=== PATIENT | female | born 1960 | race Caucasian/White ===

== ENCOUNTER 2019-12-14 05:32 | Emergency (ER) | payer OTHER ==
[~2019-12-14] VITALS: Ht 160 cm; Wt 40.8 kg
[2019-12-14 06:56] LABS: Source, Urine Clean Catch
[2019-12-14 06:58] LABS: BASOPHILS ABSOLUTE AUTO 0.04 K/mm3 (0.00-0.23); BASOPHILS PERCENT AUTO 1 % (0-2); EOSINOPHILS ABSOLUTE AUTO 0.07 K/mm3 (0.00-0.68); EOSINOPHILS PERCENT AUTO 2 % (0-6); Hematocrit 38.6 % (33.0-51.0); Hemoglobin 12.4 g/dL (11.5-16.0); IMMATURE GRAN ABSOLUTE AUTO 0.01 K/mm3 (0.00-0.10); IMMATURE GRAN PERCENT AUTO 0 % (0-1); LYMPHOCYTES ABSOLUTE AUTO 1.49 K/mm3 (0.84-5.20); LYMPHOCYTES PERCENT AUTO 36 % (21-46); MONOCYTES ABSOLUTE AUTO 0.48 K/mm3 (0.16-1.47); MONOCYTES PERCENT AUTO 12 % (4-13); Mean Corpuscular HGB Conc 32.1 g/dL (31.5-36.5); Mean Corpuscular Volume 103 fL (80-100); Mean Platelet Volume 9.3 fL (9.1-12.4); NEUTROPHILS PERCENT AUTO 49 % (41-73); Platelet Count 192 K/mm3 (150-400); RDW Coefficient Variation 13.6 % (11.7-14.2); RDW Standard Deviation 51.7 fL (35.1-46.3); Red Blood Cell Count 3.76 M/mm3 (3.80-5.20); White Blood Cell Count 4.09 K/mm3 (4.00-11.30)
[2019-12-14 07:07] LABS: Appearance, Urine Hazy (Clear); Bilirubin, Urine Neg (Neg); Blood, Urine 3+ (Neg); Color, Urine Yellow (P-Yellow); Glucose Qualitative, Urine Neg (Neg); Ketones, Urine Neg (Neg); Leukocyte Esterase, Urine 2+ (Neg); Nitrite, Urine Neg (Neg); Protein, Urine 2+ (Neg); Specific Gravity, Urine 1.015 (1.003-1.022); Urobilinogen, Urine 1+ (Normal)
[2019-12-14 07:18] LABS: Amorphous Mod (0-Heavy); Bacteria Many /hpf; Mucus Light (0-Heavy); Squamous Epithelial Cells Mod /hpf (Few)
[2019-12-14 07:19] LABS: Alanine Aminotransfer (ALT/SGP 58 U/L (12-78); Albumin, Blood 3.5 g/dL (3.4-5.0); Alk Phos 78 U/L (50-136); Anion Gap 6 mmol/L (6-16); Aspartate Aminotrans (AST/SGOT 84 U/L (12-37); Bilirubin, Total 0.2 mg/dL (0.1-1.0); Blood Urea Nitrogen 10 mg/dL (8-24); Bun/Creatinine Ratio 14.6 (12.0-20.0); C-REACTIVE PROTEIN, EXT RANGE 0.362 mg/dL (0.000-0.300); CO2, Blood 25 mmol/L (21-32); Calcium, Blood 8.5 mg/dL (8.5-10.1); Chloride, Blood 111 mmol/L (98-108); Creatinine, Blood 0.69 mg/dL (0.40-1.00); Globulin, Blood 3.4 g/dL (2.2-4.0); Glomerular Filtration Rate >60 (60-); Glucose, Blood 84 mg/dL (70-99); Potassium, Blood 3.7 mmol/L (3.5-5.5); Sodium, Blood 142 mmol/L (136-145); Total Protein, Blood 6.9 g/dL (6.4-8.2)
[2019-12-14] MEDS ORDERED: CEPH500 PO (09:01)
== END 2019-12-14 09:21 | disposition home or self-care (01) ==
LOC: ER 05:32
PROVIDERS: Emergency Medicine
DX: S31.41XA Laceration without foreign body of vagina and vulva, initial encounter (principal); L03.315 Cellulitis of perineum; Z85.048 Personal history of other malignant neoplasm of rectum, rectosigmoid junction, and anus; Z88.0 Allergy status to penicillin; Z88.5 Allergy status to narcotic agent; X58.XXXA Exposure to other specified factors, initial encounter
CPT/HCPCS: 36415; 72193; 80053; 81001; 85025; 86140; 87086; 87147; 96374; 99283-25; A9270-GY; J1170; Q9967

== ENCOUNTER 2020-08-09 12:35 | Day surgery (SDC) | payer OTHER ==
[~2020-08-09] VITALS: Ht 160 cm; Wt 40.5 kg
[~2020-08-09 12:35] MED LIST: CEPH500 PO
== END 2020-08-09 14:33 | disposition home or self-care (01) ==
LOC: ORSCSDS 12:35
PROVIDERS: Surgery
PROC: 0DJD8ZZ Inspection of Lower Intestinal Tract, Via Natural or Artificial Opening Endoscopic (ICD-10-PCS; principal; 2020-08-09 13:45)
DX: R93.3 Abnormal findings on diagnostic imaging of other parts of digestive tract (principal); Z85.048 Personal history of other malignant neoplasm of rectum, rectosigmoid junction, and anus; F17.210 Nicotine dependence, cigarettes, uncomplicated; F41.9 Anxiety disorder, unspecified
CPT/HCPCS: J2704; J7120

== ENCOUNTER 2020-09-11 17:04 | Emergency (ER) | payer OTHER ==
[~2020-09-11] VITALS: Ht 160 cm; Wt 43.1 kg
== END 2020-09-11 18:33 | disposition home or self-care (01) ==
LOC: ER 17:04
DX: S52.512A Displaced fracture of left radial styloid process, initial encounter for closed fracture (principal); F17.210 Nicotine dependence, cigarettes, uncomplicated; Z88.0 Allergy status to penicillin; Z88.5 Allergy status to narcotic agent; Z88.2 Allergy status to sulfonamides; Z88.7 Allergy status to serum and vaccine; W01.0XXA Fall on same level from slipping, tripping and stumbling without subsequent striking against object, initial encounter
CPT/HCPCS: 29125; 73110; 99283-25; A9270

== ENCOUNTER 2022-12-12 11:39 | Emergency (ER) | payer OTHER ==
[~2022-12-12] VITALS: Ht 160 cm; Wt 40.8 kg
[2022-12-12] MEDS ORDERED: Ventolin/Prove6.7 GM INH (11:48)
[2022-12-12] MEDS ORDERED: EUTHYROX25 MC1 PO (11:48)
[2022-12-12] MEDS ORDERED: NAPROXEN500 MG PO (11:48)
[2022-12-12 14:30] VITALS: BP 120/78
[2022-12-12] MEDS ORDERED: Norco 7.5-3251 EACH PO (15:26)
== END 2022-12-12 15:44 | disposition home or self-care (01) ==
LOC: ER 11:39
DX: S82.144A Nondisplaced bicondylar fracture of right tibia, initial encounter for closed fracture (principal); W01.10XA Fall on same level from slipping, tripping and stumbling with subsequent striking against unspecified object, initial encounter; Z88.0 Allergy status to penicillin; Z88.5 Allergy status to narcotic agent; Z88.2 Allergy status to sulfonamides; Z88.7 Allergy status to serum and vaccine; Z79.899 Other long term (current) drug therapy; F17.210 Nicotine dependence, cigarettes, uncomplicated
CPT/HCPCS: 29505; 73562-RT; 73610; 73700; 99284-25; A9270

== ENCOUNTER 2023-11-18 20:37 | Emergency (ER) | payer OTHER ==
[~2023-11-18] VITALS: Ht 157.5 cm; Wt 38.6 kg
[~2023-11-18 20:37] MED LIST changes: +EUTHYROX25 MC1 PO; +NAPROXEN500 MG PO; +Norco 7.5-3251 EACH PO; +Ventolin/Prove6.7 GM INH
[2023-11-18 21:11] LABS: BASOPHILS ABSOLUTE AUTO 0.06 K/mm3 (0.00-0.23); BASOPHILS PERCENT AUTO 1 % (0-2); EOSINOPHILS ABSOLUTE AUTO 0.01 K/mm3 (0.00-0.68); EOSINOPHILS PERCENT AUTO 0 % (0-6); Hematocrit 34.9 % (33.0-51.0); Hemoglobin 11.5 g/dL (11.5-16.0); IMMATURE GRAN ABSOLUTE AUTO 0.02 K/mm3 (0.00-0.10); IMMATURE GRAN PERCENT AUTO 0 % (0-1); LYMPHOCYTES ABSOLUTE AUTO 0.63 K/mm3 (0.84-5.20); LYMPHOCYTES PERCENT AUTO 11 % (21-46); MONOCYTES PERCENT AUTO 5 % (4-13); Mean Corpuscular Volume 100 fL (80-100); Mean Platelet Volume 8.9 fL (9.1-12.4); NEUTROPHILS ABSOLUTE AUTO 4.95 K/mm3 (1.96-9.15); NEUTROPHILS PERCENT AUTO 83 % (41-73); Platelet Count 288 K/mm3 (150-400); RDW Coefficient Variation 14.5 % (11.7-14.2); Red Blood Cell Count 3.49 M/mm3 (3.80-5.20); White Blood Cell Count 5.97 K/mm3 (4.00-11.30)
[2023-11-18 21:34] LABS: Albumin, Blood 3.5 g/dL (3.4-5.0); Albumin/Globulin Ratio 0.9 (0.8-1.8); Bilirubin, Total 0.3 mg/dL (0.1-1.0); Bun/Creatinine Ratio 25.5 (12.0-20.0); Calcium, Blood 8.6 mg/dL (8.5-10.1); Creatinine, Blood 0.67 mg/dL (0.40-1.00); Globulin, Blood 3.8 g/dL (2.2-4.0); Potassium, Blood 3.5 mmol/L (3.5-5.5); Total Protein, Blood 7.3 g/dL (6.4-8.2)
[2023-11-18 23:21] VITALS: BP 116/81
[2023-11-18] MEDS ORDERED: Voltaren100 GM TOP (23:23)
== END 2023-11-18 23:28 | disposition home or self-care (01) ==
LOC: ER 20:37
PROVIDERS: Student in an Organized Health Care Education/Training Program
DX: R07.89 Other chest pain (principal); S16.1XXA Strain of muscle, fascia and tendon at neck level, initial encounter; X58.XXXA Exposure to other specified factors, initial encounter; Z88.0 Allergy status to penicillin; Z88.5 Allergy status to narcotic agent; Z88.2 Allergy status to sulfonamides; Z88.7 Allergy status to serum and vaccine; Z79.890 Hormone replacement therapy; Z79.899 Other long term (current) drug therapy; F17.210 Nicotine dependence, cigarettes, uncomplicated
CPT/HCPCS: 71046; 80053; 84484; 85025; 93005; 93010; 99285-25

== ENCOUNTER 2024-03-07 09:32 | Inpatient (IN) | payer OTHER ==
[~2024-03-07] VITALS: Ht 160 cm; Wt 39.9 kg
[~2024-03-07 09:32] MED LIST changes: +Voltaren100 GM TOP
[2024-03-07 10:21] LABS: BASOPHILS ABSOLUTE AUTO 0.04 K/mm3 (0.00-0.23); BASOPHILS PERCENT AUTO 0 % (0-2); EOSINOPHILS PERCENT AUTO 0 % (0-6); Hematocrit 38.1 % (33.0-51.0); Hemoglobin 12.7 g/dL (11.5-16.0); IMMATURE GRAN ABSOLUTE AUTO 0.04 K/mm3 (0.00-0.10); IMMATURE GRAN PERCENT AUTO 0 % (0-1); LYMPHOCYTES ABSOLUTE AUTO 0.51 K/mm3 (0.84-5.20); LYMPHOCYTES PERCENT AUTO 4 % (21-46); MONOCYTES ABSOLUTE AUTO 0.48 K/mm3 (0.16-1.47); MONOCYTES PERCENT AUTO 4 % (4-13); Mean Corpuscular HGB 31.8 pg (26.0-34.0); Mean Corpuscular HGB Conc 33.3 g/dL (31.5-36.5); Mean Corpuscular Volume 96 fL (80-100); NEUTROPHILS ABSOLUTE AUTO 12.73 K/mm3 (1.96-9.15); NEUTROPHILS PERCENT AUTO 92 % (41-73); Platelet Count 364 K/mm3 (150-400); RDW Coefficient Variation 13.7 % (11.7-14.2); Red Blood Cell Count 3.99 M/mm3 (3.80-5.20)
[2024-03-07 10:41] LABS: Albumin, Blood 3.5 g/dL (3.4-5.0); Albumin/Globulin Ratio 0.9 (0.8-1.8); Bilirubin, Total 0.6 mg/dL (0.1-1.0); Bun/Creatinine Ratio 25.6 (12.0-20.0); Calcium, Blood 10.2 mg/dL (8.5-10.1); Creatinine, Blood 0.94 mg/dL (0.40-1.00); Globulin, Blood 3.9 g/dL (2.2-4.0); Total Protein, Blood 7.4 g/dL (6.4-8.2)
[2024-03-07] MEDS ORDERED: NS 1,000 ML IV SCH ×2 (13:00→15:00)
[2024-03-07] MEDS ORDERED: Morphine Sulfate 4 MG/1 ML Injection IV ONE (13:00)
[2024-03-07] MEDS ORDERED: Ondansetron HCl 2 MG / ML 2ML Vial IV ONE ×2 (13:40→13:45)
[2024-03-07] MEDS ORDERED: Morphine Sulfate 4 MG/1 ML Injection IV PRN (14:10)
[2024-03-07] MEDS ORDERED: FLU VACC TS2024-25(6MOS UP)/PF 45 MCG/0.5 ML SYRINGE IM PRN (14:10)
[2024-03-07] MEDS ORDERED: Ondansetron HCl 2 MG / ML 2ML Vial IV PRN (14:10)
[2024-03-07 15:39] VITALS: BP 144/85
--- NOTE | 2024-03-07 16:37 | NUR ---
PT ARRIVED TO UNIT FROM ED REQUESTED TO BE CONFIDENTIAL. NOTIFIED ADMITTING. ORIENTED PT TO USE OF CALL LIGHT AND ROOM. PT REPORTS HAS HAD SOME FALLS RECENTLY. ADVISED PT TO CALL FOR ASSISTANCE AMBULATING FOR SAFETY. PT VERBALIZED UNDERSTANDING. PT'S ABDOMEN DISTENDED, FIRM AND BT HYPOACTIVE. AMBULATED TO BATHROOM AND SHOWERED. NOW BACK TO BED. CALL LIGHT IN REACH. MEDICATD PER ORDERS FOR PAIN AND STARTED IV FLUIDS PER ORDERS.
[2024-03-07 19:14] VITALS: BP 119/73
[2024-03-08] VITALS (20 sets, daily range): BP systolic 111–146; BP diastolic 67–91
[2024-03-08 05:29] LABS: BASOPHILS ABSOLUTE AUTO 0.02 K/mm3 (0.00-0.23); BASOPHILS PERCENT AUTO 0 % (0-2); EOSINOPHILS ABSOLUTE AUTO 0.05 K/mm3 (0.00-0.68); EOSINOPHILS PERCENT AUTO 1 % (0-6); Hematocrit 30.4 % (33.0-51.0); Hemoglobin 10.1 g/dL (11.5-16.0); IMMATURE GRAN ABSOLUTE AUTO 0.01 K/mm3 (0.00-0.10); IMMATURE GRAN PERCENT AUTO 0 % (0-1); LYMPHOCYTES ABSOLUTE AUTO 0.67 K/mm3 (0.84-5.20); LYMPHOCYTES PERCENT AUTO 12 % (21-46); MONOCYTES ABSOLUTE AUTO 0.62 K/mm3 (0.16-1.47); MONOCYTES PERCENT AUTO 11 % (4-13); Mean Corpuscular HGB 32.7 pg (26.0-34.0); Mean Corpuscular HGB Conc 33.2 g/dL (31.5-36.5); Mean Corpuscular Volume 98 fL (80-100); NEUTROPHILS ABSOLUTE AUTO 4.06 K/mm3 (1.96-9.15); NEUTROPHILS PERCENT AUTO 75 % (41-73); Platelet Count 264 K/mm3 (150-400); RDW Coefficient Variation 13.9 % (11.7-14.2); RDW Standard Deviation 49.9 fL (35.1-46.3); Red Blood Cell Count 3.09 M/mm3 (3.80-5.20); White Blood Cell Count 5.43 K/mm3 (4.00-11.30)
[2024-03-08 05:58] LABS: Albumin, Blood 2.8 g/dL (3.4-5.0); Bilirubin, Total 0.4 mg/dL (0.1-1.0); Calcium, Blood 8.4 mg/dL (8.5-10.1); Creatinine, Blood 0.81 mg/dL (0.40-1.00); Globulin, Blood 2.9 g/dL (2.2-4.0); Potassium, Blood 3.7 mmol/L (3.5-5.5); Total Protein, Blood 5.7 g/dL (6.4-8.2)
--- NOTE | 2024-03-08 07:34 | NUR ---
SHIFT SUMMARY NOC. PT ADMIT FOR COLONIC OBSTRUCTION. PT A/O X4. PT MEDICATED FOR PAIN WITH MORPHINE APPROX Q 2 HOURS. PT NPO STATUS IS VOIDING URINE. PT REPORTED SMALL DIME SIZE SOFT BM X2 THIS SHIFT. PT RESTED WITH EYES CLOSED AND CALL LIGHT IN REACH.
[2024-03-08] MEDS ORDERED: Lactated Ringer's 1,000 ML IV SCH ×2 (08:45→16:05)
[2024-03-08] MEDS ORDERED: MetroNIDAZOLE 500MG/NS 100 ml 100 ML IV SCH ×2 (10:50→21:00)
[2024-03-08] MEDS ORDERED: LevoFLOXacin 500MG/D5W 100ML 100 ML IV SCH (10:50)
[2024-03-08] MEDS ORDERED: Nicotine 7 MG PATCH TOP SCH (11:00)
[2024-03-08] MEDS ORDERED: Lactated Ringer's 1,000 ML IV ONE (12:32)
--- NOTE | 2024-03-08 12:51 | NUR ---
PT TO PREOP ON TIEN.
[2024-03-08] MEDS ORDERED: Bupivacaine 0.5% HCl 5 MG/ML 30MLVIAL ONE (12:56)
--- NOTE | 2024-03-08 12:59 | NUR ---
PT IN PACU FOR PRE-OP, DR PRATER CONSULTING WITH PT NOW
[2024-03-08] MEDS ORDERED: Midazolam HCl 1MG / ML 2ML Vial ONE (13:03)
--- NOTE | 2024-03-08 13:07 | NUR ---
Venancio XIE ROUTE SALES MANAGER CONSULTING WITH PT
[2024-03-08] MEDS ORDERED: FentaNYL Citrate 50 MCG/ML 2 ML Injection ONE ×2 (13:09→15:44)
[2024-03-08] MEDS ORDERED: Rocuronium Bromide 10 MG/ML 5ML Injection IV ONE (13:10)
[2024-03-08] MEDS ORDERED: Etomidate 2MG / ML 10ML Vial ONE (13:11)
[2024-03-08] MEDS ORDERED: Ketorolac Tromethamine 30mg Vial ONE (14:51)
[2024-03-08] MEDS ORDERED: Sugammadex Sodium 200 MG/2ML SDV (100 MG/ML) ONE (14:52)
[2024-03-08] MEDS ORDERED: Ondansetron HCl 2 MG / ML 2ML Vial ONE (14:52)
[2024-03-08] MEDS ORDERED: Dexamethasone Sod Phos 10 MG/ML 1ML VIAL ONE (14:52)
[2024-03-08] MEDS ORDERED: Metoclopramide HCl 5MG / ML 2ML Vial ONE (15:49)
[2024-03-08] MEDS ORDERED: Ondansetron HCl 2 MG / ML 2ML Vial IV PRN (16:05)
[2024-03-08] MEDS ORDERED: HYDROmorphone HCl/Pf 1MG SYR ONE (16:13)
[2024-03-08] MEDS ORDERED: fentaNYL citrate 20 MCG/ML 30MLSYR IV PRN (16:15)
[2024-03-08] MEDS ORDERED: Nicotine Polacrilex 2 MG Gum PO PRN (16:40)
[2024-03-08] MEDS ORDERED: Albuterol 2.5 MG/3 ML VIAL INH PRN (16:40)
--- NOTE | 2024-03-08 17:36 | NUR ---
POST OP NOTE/SHIFT SUMMARY PT INTO ROOM FROM PACU, AWAKE AND RESPONSIVE, FOLLOWING COMMANDS. PT TRANSFERED TO BED FROM [facility] VIA SLIDE SHEET, REMOVED EXTRA LINENS UNDER PT, PT ABLE TO ROLL SIDE TO SIDE. OSTOMY IN PLACE TO LLQ, SOFT BROWN OUTPUT. MIDLINE FARHAT DRESSING IN PLACE, C/D/I. PUBLIC SPEAKING INSTRUCTOR PUMP SET PER EMAR ORDER, BUTTON IN PT'S HAND. IV FLUIDS RUNNING PER EMAR. PT REPORTS PAIN 9/10 BUT STATES THAT IS TOLERABLE FOR HER. PAS ON. KPAD ON ABD. CO2 MONITOR IN PLACE. FAMILY AND FRIEND AT BEDSIDE W/ PERMISSION OF PT. PT GIVEN CLEAR LIQUIDS AND ENCOURAGED TO TAKE SLOW SIPS. VSS. CALL LIGHT IN REACH.
[2024-03-09 00:07] VITALS: BP 137/85
--- NOTE | 2024-03-09 04:38 | NUR ---
SHIFT SUMMARY POD 1- SIGMOID COLECTOMY W/OSTOMY. APPLIANCE INTACT, OSTOMY EMPTIED MULTIPLE TIMES THIS SHIFT. SOFT, LOOSE BROWN BM. PASSING FLATUS OUT STOMA. STOMA BEEFY RED. PT DENIES N/V. HYPERACTIVE BT. TOLERATING CLEAR LIQUIDS. MIDLINE FARHAT DRESSING CLEAN, INTACT & COMPRESSED. REPORTS 8-01/06 ABD PAIN, STATES AMMONIA NITRATE OPERATOR IS MANAGING HER PAIN WELL. AOX4. VSS. PT ASSISTED TO BSC, HAS VOIDED. CALL LIGHT IN REACH.
[2024-03-09 05:05] VITALS: BP 135/99
[2024-03-09 05:28] LABS: BASOPHILS ABSOLUTE AUTO 0.02 K/mm3 (0.00-0.23); BASOPHILS PERCENT AUTO 0 % (0-2); EOSINOPHILS PERCENT AUTO 0 % (0-6); Hematocrit 30.2 % (33.0-51.0); Hemoglobin 9.7 g/dL (11.5-16.0); IMMATURE GRAN ABSOLUTE AUTO 0.04 K/mm3 (0.00-0.10); IMMATURE GRAN PERCENT AUTO 0 % (0-1); LYMPHOCYTES ABSOLUTE AUTO 0.68 K/mm3 (0.84-5.20); LYMPHOCYTES PERCENT AUTO 8 % (21-46); MONOCYTES PERCENT AUTO 10 % (4-13); Mean Corpuscular HGB 32.3 pg (26.0-34.0); Mean Corpuscular HGB Conc 32.1 g/dL (31.5-36.5); Mean Corpuscular Volume 101 fL (80-100); Mean Platelet Volume 9.1 fL (9.1-12.4); NEUTROPHILS ABSOLUTE AUTO 7.29 K/mm3 (1.96-9.15); NEUTROPHILS PERCENT AUTO 82 % (41-73); Platelet Count 247 K/mm3 (150-400); RDW Coefficient Variation 13.9 % (11.7-14.2); RDW Standard Deviation 50.8 fL (35.1-46.3); White Blood Cell Count 8.93 K/mm3 (4.00-11.30)
[2024-03-09] MEDS ORDERED: Levothyroxine Sodium 0.025 MG Tab PO SCH (06:00)
[2024-03-09 06:03] LABS: Albumin, Blood 2.5 g/dL (3.4-5.0); Albumin/Globulin Ratio 0.8 (0.8-1.8); Bilirubin, Total 0.6 mg/dL (0.1-1.0); Bun/Creatinine Ratio 15.6 (12.0-20.0); Calcium, Blood 8.3 mg/dL (8.5-10.1); Creatinine, Blood 0.83 mg/dL (0.40-1.00); Potassium, Blood 4.3 mmol/L (3.5-5.5); Total Protein, Blood 5.5 g/dL (6.4-8.2)
[2024-03-09 07:38] VITALS: BP 120/84
[2024-03-09] MEDS ORDERED: Nicotine 7 MG PATCH TOP SCH (09:00)
[2024-03-09] MEDS ORDERED: Enoxaparin 30 MG/0.3 ML SYR SC SCH (09:00)
[2024-03-09] MEDS ORDERED: LevoFLOXacin 500MG/D5W 100ML 100 ML IV ONE (13:00)
[2024-03-09] MEDS ORDERED: Lactated Ringer's 1,000 ML IV SCH (13:55)
[2024-03-09 14:22] VITALS: BP 146/100
[2024-03-09 15:57] VITALS: BP 133/82
--- NOTE | 2024-03-09 17:55 | NUR ---
SHIFT SUMMARY POD 1 S/P SIGMOID COLECTOMY WITH OSTOMY. OSTOMY APPLIANCE CHANGED WITH SPECIALIST DUE TO LEAKING. STOMA BEEFY RED IN COLOR AND PRODUCES LARGE AMOUNTS OF THICK, BROWN STOOL. PT ABLE AND WILLING TO ASSIST AND DISCUSS OSTOMY CARE. IVF AND ABX INFUSING PER ORDERS. TOLERATING CL PO INTAKE, DENIES N/V. BINDER SELECTOR INFUSING, MEDICATED 2X FOR BREAK THROUGH PAIN. PT UPSET ABOUT ESTRANGED CALLING TO CHECK ON HER, PT THEN MOVED ROOMS FOR COMFORT AND SAFETY. DIRECTOR AND CHARGE AWARE. PT CURRENTLY TALKING ON PHONE IN ROOM WITH CALL LIGHT AND BINDER SELECTOR BUTTON IN REACH. WILL CONTINUE TO CARE FOR PATIENT AND GIVE REPORT TO ONCOMING RN.
--- NOTE | 2024-03-09 18:01 | NUR ---
UPDATE PT ABLE TO STAND PIVOT TO BSC TO VOID. DECLINED AMBULATION OR SITTING IN THE CHAIR THROUGHOUT SHIFT, ENCOURAGED BY THIS RN AND NUMERICAL CONTROL MACHINE MACHINIST. WILL CONTINUE TO ENCOURAGE AND REPORT TO ONCOMING RN
[2024-03-09 19:54] VITALS: BP 126/70
[2024-03-10 04:28] VITALS: BP 132/84
--- NOTE | 2024-03-10 05:39 | NUR ---
SHIFT SUMMARY NO ACUTE CHANGES OVERNIGHT. POD2 SIGMOID COLECTOMY WITH NEW OSTOMY. OSTOMY STOMA RED, BEEFY. 60ML LIQUID BROWN OUTPUT OVERNIGHT; GAS OUTPUT WELL. ENDORSES ABD PAIN RANGING FROM 7-9/10. MANAGED UTILIZING NPIS AND PER EMAR, INCLUDING FENTANYL PROGRAM MANAGEMENT ANALYST PUMP. DENIES NAUSEA. TOLERATING PO CLEAR LIQUIDS. UP TO BSC FOR VOIDS. 1P SBA FOR LINES/CORDS. A&OX4. PLEASANT & COOPERATIVE WITH CARES. PT ABLE TO REST DURING SHIFT. PT VOICED UNDERSTANDING OF PLAN OF CARES, DENIES QUESTIONS/CONCERNS AT THIS TIME.
[2024-03-10 07:09] LABS: BASOPHILS ABSOLUTE AUTO 0.03 K/mm3 (0.00-0.23); BASOPHILS PERCENT AUTO 0 % (0-2); EOSINOPHILS ABSOLUTE AUTO 0.02 K/mm3 (0.00-0.68); EOSINOPHILS PERCENT AUTO 0 % (0-6); Hematocrit 30.8 % (33.0-51.0); IMMATURE GRAN ABSOLUTE AUTO 0.02 K/mm3 (0.00-0.10); IMMATURE GRAN PERCENT AUTO 0 % (0-1); LYMPHOCYTES ABSOLUTE AUTO 0.52 K/mm3 (0.84-5.20); LYMPHOCYTES PERCENT AUTO 8 % (21-46); MONOCYTES ABSOLUTE AUTO 0.58 K/mm3 (0.16-1.47); MONOCYTES PERCENT AUTO 8 % (4-13); Mean Corpuscular HGB 32.4 pg (26.0-34.0); Mean Corpuscular HGB Conc 32.5 g/dL (31.5-36.5); Mean Corpuscular Volume 100 fL (80-100); NEUTROPHILS ABSOLUTE AUTO 5.71 K/mm3 (1.96-9.15); NEUTROPHILS PERCENT AUTO 83 % (41-73); Platelet Count 231 K/mm3 (150-400); RDW Coefficient Variation 13.6 % (11.7-14.2); RDW Standard Deviation 50.2 fL (35.1-46.3); Red Blood Cell Count 3.09 M/mm3 (3.80-5.20); White Blood Cell Count 6.88 K/mm3 (4.00-11.30)
[2024-03-10 07:32] LABS: Albumin, Blood 2.4 g/dL (3.4-5.0); Albumin/Globulin Ratio 0.8 (0.8-1.8); Bilirubin, Total 0.5 mg/dL (0.1-1.0); Calcium, Blood 8.2 mg/dL (8.5-10.1); Creatinine, Blood 0.64 mg/dL (0.40-1.00); Globulin, Blood 3.1 g/dL (2.2-4.0); Potassium, Blood 3.6 mmol/L (3.5-5.5); Total Protein, Blood 5.5 g/dL (6.4-8.2)
[2024-03-10 07:40] VITALS: BP 148/90
[2024-03-10] MEDS ORDERED: HYDROmorphone HCl 2 MG Tab PO PRN (07:45)
[2024-03-10] MEDS ORDERED: FentaNYL Citrate 50 MCG/ML 2 ML Injection IV PRN (07:45)
[2024-03-10 14:34] VITALS: BP 119/81
--- NOTE | 2024-03-10 17:57 | NUR ---
SHIFT SUMMARY POD 2 SIGMOID COLECTOMY WITH OSTOMY. PAIN MANAGED WITH PO DILAUDID, MEDICATED TWICE. UP IN CHAIR MOST OF SHIFT. AMBULATED IN HALLWAYS, MIC SHOWER, AND IND IN ROOM. TOLERATING REGULAR DIET. ABD DRESSING IN PLACE WITH SS SHADOWING NOTED. OSTOMY STOMA BEEFY RED IN COLOR, PRODUCING SOFT BROWN STOOL. PT REPORTS IMPROVEMENT WITH IND CARE OF OSTOMY. PT CURRENTLY UP IN CHAIR, DENIES NEEDS. HAS CALL LIGHT IN REACH. ABLE TO MAKE NEEDS KNOWN. WILL CONTINUE TO CARE FOR PATIENT AND GIVE REPORT TO ONCOMING RN.
[2024-03-10 19:46] VITALS: BP 125/81
--- NOTE | 2024-03-10 20:17 | NUR ---
REPORT GIVEN TO MAHAMED TO ASSUME CARE OF PT AT THIS TIME.
--- NOTE | 2024-03-10 20:20 | NUR ---
ASSUMPTION OF CARE RECEIVED REPORT FROM KIMBERLEY PERDOMO. REPORTS PT A&O x4. TOERATING DIET. IND IN ROOM. MEDIPORE TO MIDLINE INCISION C/D/I. OSTOMY RED/BEEFY. PT ATTEMPTING TO MANAGE OSTOMY IND. PAIN MANAGED PER EMAR.
[2024-03-11 04:10] VITALS: BP 130/91
--- NOTE | 2024-03-11 05:54 | NUR ---
SHIFT SUMMARY POD 3 SIGMOID COLECTOMY c NEW OSTOMY. NO ACUTE CHANGES OVERNIGHT. VSS. TOLERATING REGULAR DIET. DENIES N/V. IND IN ROOM. VOIDING. PT REPORTS INCREASED SELF-MANAGEMENT OF OSTOMY, BURPING BAG IND. PT REPORTS MIN OUTPUT OVERNIGHT, c LIQ BROWN STOOL. MIDLINE FARHAT C/D/I. PT REPORTS PAIN TOLERABLE, MEDICATED PER EMAR. CALL LIGHT IN REACH, BED IN LOWEST POSITION, WILL REPORT TO DAY RN.
[2024-03-11 06:57] LABS: BASOPHILS ABSOLUTE AUTO 0.02 K/mm3 (0.00-0.23); BASOPHILS PERCENT AUTO 0 % (0-2); EOSINOPHILS ABSOLUTE AUTO 0.03 K/mm3 (0.00-0.68); EOSINOPHILS PERCENT AUTO 1 % (0-6); Hematocrit 30.9 % (33.0-51.0); Hemoglobin 10.1 g/dL (11.5-16.0); IMMATURE GRAN ABSOLUTE AUTO 0.03 K/mm3 (0.00-0.10); IMMATURE GRAN PERCENT AUTO 1 % (0-1); LYMPHOCYTES ABSOLUTE AUTO 0.66 K/mm3 (0.84-5.20); LYMPHOCYTES PERCENT AUTO 11 % (21-46); MONOCYTES ABSOLUTE AUTO 0.53 K/mm3 (0.16-1.47); MONOCYTES PERCENT AUTO 9 % (4-13); Mean Corpuscular HGB 31.8 pg (26.0-34.0); Mean Corpuscular HGB Conc 32.7 g/dL (31.5-36.5); Mean Corpuscular Volume 97 fL (80-100); Mean Platelet Volume 9.2 fL (9.1-12.4); NEUTROPHILS ABSOLUTE AUTO 4.57 K/mm3 (1.96-9.15); NEUTROPHILS PERCENT AUTO 78 % (41-73); Platelet Count 253 K/mm3 (150-400); RDW Coefficient Variation 13.3 % (11.7-14.2); RDW Standard Deviation 48.1 fL (35.1-46.3); Red Blood Cell Count 3.18 M/mm3 (3.80-5.20); White Blood Cell Count 5.84 K/mm3 (4.00-11.30)
[2024-03-11 07:14] LABS: Albumin, Blood 2.5 g/dL (3.4-5.0); Albumin/Globulin Ratio 0.8 (0.8-1.8); Bilirubin, Total 0.5 mg/dL (0.1-1.0); Bun/Creatinine Ratio 11.3 (12.0-20.0); Calcium, Blood 8.3 mg/dL (8.5-10.1); Creatinine, Blood 0.62 mg/dL (0.40-1.00); Globulin, Blood 3.2 g/dL (2.2-4.0); Potassium, Blood 3.4 mmol/L (3.5-5.5); Total Protein, Blood 5.7 g/dL (6.4-8.2)
[2024-03-11 07:42] VITALS: BP 124/87
[2024-03-11] MEDS ORDERED: Potassium Chloride 10 Meq Tablet SA PO ONE (07:50)
--- NOTE | 2024-03-11 13:55 | NUR ---
DR PRATER IN TO SEE PT.
[2024-03-11 14:26] VITALS: BP 116/84
--- NOTE | 2024-03-11 16:51 | NUR ---
summary no acute changes t/o shift. pt independent in room. tolerating diet. emptying ostomy indepedently. pain managed per emar. call light in reach.
[2024-03-11 19:22] VITALS: BP 105/83
[2024-03-12 03:23] VITALS: BP 114/75
[2024-03-12 04:49] LABS: BASOPHILS ABSOLUTE AUTO 0.03 K/mm3 (0.00-0.23); BASOPHILS PERCENT AUTO 1 % (0-2); EOSINOPHILS ABSOLUTE AUTO 0.09 K/mm3 (0.00-0.68); EOSINOPHILS PERCENT AUTO 2 % (0-6); Hemoglobin 11.2 g/dL (11.5-16.0); IMMATURE GRAN ABSOLUTE AUTO 0.03 K/mm3 (0.00-0.10); IMMATURE GRAN PERCENT AUTO 1 % (0-1); LYMPHOCYTES ABSOLUTE AUTO 1.14 K/mm3 (0.84-5.20); LYMPHOCYTES PERCENT AUTO 19 % (21-46); MONOCYTES ABSOLUTE AUTO 0.59 K/mm3 (0.16-1.47); MONOCYTES PERCENT AUTO 10 % (4-13); Mean Corpuscular HGB 32.5 pg (26.0-34.0); Mean Corpuscular HGB Conc 32.9 g/dL (31.5-36.5); Mean Corpuscular Volume 99 fL (80-100); Mean Platelet Volume 9.3 fL (9.1-12.4); NEUTROPHILS ABSOLUTE AUTO 3.99 K/mm3 (1.96-9.15); NEUTROPHILS PERCENT AUTO 68 % (41-73); Platelet Count 286 K/mm3 (150-400); RDW Coefficient Variation 13.5 % (11.7-14.2); RDW Standard Deviation 48.8 fL (35.1-46.3); Red Blood Cell Count 3.45 M/mm3 (3.80-5.20); White Blood Cell Count 5.87 K/mm3 (4.00-11.30)
[2024-03-12 05:11] LABS: Albumin, Blood 2.8 g/dL (3.4-5.0); Albumin/Globulin Ratio 0.7 (0.8-1.8); Bilirubin, Total 0.2 mg/dL (0.1-1.0); Bun/Creatinine Ratio 18.1 (12.0-20.0); Creatinine, Blood 0.66 mg/dL (0.40-1.00); Globulin, Blood 3.8 g/dL (2.2-4.0); Potassium, Blood 3.8 mmol/L (3.5-5.5); Total Protein, Blood 6.6 g/dL (6.4-8.2)
--- NOTE | 2024-03-12 05:45 | NUR ---
SHIFT SUMMARY POD 4 SIGMOID COLECTOMY W/ OSTOMY PT ABLE TO REST DURING THE NIGHT. PAIN MANAGED PER EMAR. TOLERATING PO INTAKE. VOIDING AND OSTOMY IS HAVING OUTPUT. OSTOMY IS BEEFY AND PINK. IND IN THE ROOM, TAKING CARE OF OWN OSTOMY. PLAN TO GO HOME TODAY. VSS. NO OTHER CONCERNS AT THIS TIME, CALL LIGHT WITHIN REACH
[2024-03-12 06:57] VITALS: BP 111/87
[2024-03-12] MEDS ORDERED: HYDMOR2 PO (12:34)
[2024-03-12] MEDS ORDERED: NICOTINE GUM2 M1 PO (12:39)
[2024-03-12] MEDS ORDERED: NICODERM CQ1 EA24 TOP (12:40)
[2024-03-12 14:25] VITALS: BP 109/66
--- NOTE | 2024-03-12 15:07 | NUR ---
DISCHARGED PT CHANGED OWN OSTOMY TODAY WITH COACHING. REVIEWED DC INSTRUCTIONS WITH PT; VERBALIZED UNDERSTANDING. PROVIDED OSTOMY APPLIANCE CHANGES/SUPPLIES. DC'D IV, CATHETER INTACT. PT LEFT UNIT IN WC W/POSSESSIONS AND DC PAPERWORK IN HAND TO MEET RIDE OUTSIDE.
== END 2024-03-12 15:05 | disposition home health service (06) | DRG 330 ==
LOC: ER 09:32 → SURS 14:07 → ERHOLD 14:07 → SURS 14:07
PROVIDERS: Family Medicine; Physician Assistant; Surgery; ADMIT Hospitalist
PROC: 0DBN0ZZ Excision of Sigmoid Colon, Open Approach (ICD-10-PCS; principal; 2024-03-08 12:30)
DX: K56.609 Unspecified intestinal obstruction, unspecified as to partial versus complete obstruction (principal); N13.1 Hydronephrosis with ureteral stricture, not elsewhere classified; E03.9 Hypothyroidism, unspecified; Z92.21 Personal history of antineoplastic chemotherapy; Z92.3 Personal history of irradiation; Z85.048 Personal history of other malignant neoplasm of rectum, rectosigmoid junction, and anus; Z98.51 Tubal ligation status; Z98.890 Other specified postprocedural states; F17.210 Nicotine dependence, cigarettes, uncomplicated; Z88.5 Allergy status to narcotic agent; Z88.0 Allergy status to penicillin; Z88.2 Allergy status to sulfonamides; Z88.7 Allergy status to serum and vaccine; Z79.899 Other long term (current) drug therapy; Z79.890 Hormone replacement therapy; Z85.038 Personal history of other malignant neoplasm of large intestine; Z93.3 Colostomy status
CPT/HCPCS: 36415; 74177; 80053; 85025; 88307; 94760; 94762; 96361; 96374-59; 96375; 99285-25; A9270; J1100; J1171; J1650; J1885; J1956; J2250; J2270; J2405; J2765; J3010; J7030; J7120; Q9967

== ENCOUNTER 2024-03-27 09:33 | Emergency (ER) | payer OTHER ==
[~2024-03-27] VITALS: Ht 157.5 cm; Wt 40.8 kg
[~2024-03-27 09:33] MED LIST changes: +HYDMOR2 PO; +NICODERM CQ1 EA24 TOP; +NICOTINE GUM2 M1 PO
[2024-03-27] MEDS ORDERED: HYDROmorphone HCl/Pf 1MG SYR IV ONE ×2 (10:25→14:10)
[2024-03-27] MEDS ORDERED: Ondansetron HCl 2 MG / ML 2ML Vial IV ONE (10:30)
[2024-03-27 10:53] LABS: BASOPHILS ABSOLUTE AUTO 0.04 K/mm3 (0.00-0.23); BASOPHILS PERCENT AUTO 1 % (0-2); EOSINOPHILS ABSOLUTE AUTO 0.11 K/mm3 (0.00-0.68); EOSINOPHILS PERCENT AUTO 2 % (0-6); Hematocrit 32.7 % (33.0-51.0); Hemoglobin 10.6 g/dL (11.5-16.0); IMMATURE GRAN ABSOLUTE AUTO 0.01 K/mm3 (0.00-0.10); IMMATURE GRAN PERCENT AUTO 0 % (0-1); LYMPHOCYTES ABSOLUTE AUTO 1.07 K/mm3 (0.84-5.20); LYMPHOCYTES PERCENT AUTO 19 % (21-46); MONOCYTES ABSOLUTE AUTO 0.43 K/mm3 (0.16-1.47); MONOCYTES PERCENT AUTO 8 % (4-13); Mean Corpuscular HGB 31.5 pg (26.0-34.0); Mean Corpuscular HGB Conc 32.4 g/dL (31.5-36.5); Mean Corpuscular Volume 97 fL (80-100); Mean Platelet Volume 8.8 fL (9.1-12.4); NEUTROPHILS ABSOLUTE AUTO 4.02 K/mm3 (1.96-9.15); NEUTROPHILS PERCENT AUTO 71 % (41-73); Platelet Count 276 K/mm3 (150-400); RDW Coefficient Variation 13.7 % (11.7-14.2); RDW Standard Deviation 48.9 fL (35.1-46.3); Red Blood Cell Count 3.36 M/mm3 (3.80-5.20); White Blood Cell Count 5.68 K/mm3 (4.00-11.30)
[2024-03-27 11:04] LABS: Source, Urine Clean Catch
[2024-03-27 11:06] LABS: Appearance, Urine Clear (Clear); Bilirubin, Urine Neg (Neg); Blood, Urine Neg (Neg); Color, Urine Yellow (P-Yellow); Glucose Qualitative, Urine Neg (Neg); Ketones, Urine Neg (Neg); Leukocyte Esterase, Urine Neg (Neg); Nitrite, Urine Neg (Neg); Protein, Urine Neg (Neg); Urobilinogen, Urine NORM (Normal)
[2024-03-27 11:14] LABS: Albumin, Blood 3.4 g/dL (3.4-5.0); Albumin/Globulin Ratio 1.1 (0.8-1.8); Bilirubin, Total 0.3 mg/dL (0.1-1.0); Bun/Creatinine Ratio 20.8 (12.0-20.0); Creatinine, Blood 0.77 mg/dL (0.40-1.00); Globulin, Blood 3.1 g/dL (2.2-4.0); Potassium, Blood 3.6 mmol/L (3.5-5.5); Total Protein, Blood 6.5 g/dL (6.4-8.2)
[2024-03-27] MEDS ORDERED: Methocarbamol 500 MG Tab PO ONE (14:55)
[2024-03-27] MEDS ORDERED: METHOCARBAMOL1000 MG PO (15:55)
[2024-03-27] MEDS ORDERED: HYDMOR2 PO (15:55)
[2024-03-27 16:21] VITALS: BP 126/94
== END 2024-03-27 16:36 | disposition home or self-care (01) ==
LOC: ER 09:33
PROVIDERS: Student in an Organized Health Care Education/Training Program
DX: M25.551 Pain in right hip (principal); M62.830 Muscle spasm of back; Z88.0 Allergy status to penicillin; Z88.5 Allergy status to narcotic agent; Z88.2 Allergy status to sulfonamides; Z79.899 Other long term (current) drug therapy; E03.9 Hypothyroidism, unspecified; F17.210 Nicotine dependence, cigarettes, uncomplicated
CPT/HCPCS: 74177; 80053; 81003; 85025; 96374-59; 96375; 96376; 99284-25; A9270; J1171; J2405; Q9967

== ENCOUNTER 2024-08-27 16:46 | Emergency (ER) | payer MEDICARE, OTHER ==
[~2024-08-27] VITALS: Ht 160 cm; Wt 38.1 kg
[~2024-08-27 16:46] MED LIST changes: +METHOCARBAMOL1000 MG PO
[2024-08-27 16:54] VITALS: BP 103/78
[2024-08-27 17:26] LABS: BASOPHILS ABSOLUTE AUTO 0.05 K/mm3 (0.00-0.23); BASOPHILS PERCENT AUTO 1 % (0-2); EOSINOPHILS ABSOLUTE AUTO 0.07 K/mm3 (0.00-0.68); EOSINOPHILS PERCENT AUTO 1 % (0-6); Hemoglobin 12.9 g/dL (11.5-16.0); IMMATURE GRAN ABSOLUTE AUTO 0.03 K/mm3 (0.00-0.10); IMMATURE GRAN PERCENT AUTO 1 % (0-1); LYMPHOCYTES ABSOLUTE AUTO 1.55 K/mm3 (0.84-5.20); LYMPHOCYTES PERCENT AUTO 26 % (21-46); MONOCYTES ABSOLUTE AUTO 0.49 K/mm3 (0.16-1.47); MONOCYTES PERCENT AUTO 8 % (4-13); Mean Corpuscular HGB 32.4 pg (26.0-34.0); Mean Corpuscular HGB Conc 33.9 g/dL (31.5-36.5); Mean Corpuscular Volume 96 fL (80-100); NEUTROPHILS ABSOLUTE AUTO 3.72 K/mm3 (1.96-9.15); NEUTROPHILS PERCENT AUTO 63 % (41-73); RDW Coefficient Variation 14.3 % (11.7-14.2); RDW Standard Deviation 50.3 fL (35.1-46.3); Red Blood Cell Count 3.98 M/mm3 (3.80-5.20); White Blood Cell Count 5.91 K/mm3 (4.00-11.30)
[2024-08-27 17:56] LABS: Mean Platelet Volume 9.3 fL (9.1-12.4); Platelet Count 251 K/mm3 (150-400)
[2024-08-27 17:57] LABS: Albumin, Blood 3.9 g/dL (3.4-5.0); Albumin/Globulin Ratio 1.1 (0.8-1.8); Bilirubin, Total 0.4 mg/dL (0.1-1.0); Bun/Creatinine Ratio 12.4 (12.0-20.0); Calcium, Blood 9.3 mg/dL (8.5-10.1); Creatinine, Blood 0.64 mg/dL (0.40-1.00); Globulin, Blood 3.5 g/dL (2.2-4.0); Potassium, Blood 3.8 mmol/L (3.5-5.5); Total Protein, Blood 7.4 g/dL (6.4-8.2)
[2024-08-28] MEDS ORDERED: SYNTHROID25 M12 PO (22:04)
[2024-08-28] MEDS ORDERED: DULOXETINE HCL60 M1 PO (22:04)
[2024-08-28] MEDS ORDERED: CYMBALTA30 M2 PO (22:05)
[2024-08-28] MEDS ORDERED: ALBU90OI INH (22:05)
[2024-08-28] MEDS ORDERED: Methocarbamol500 MG PO (22:05)
[2024-08-28] MEDS ORDERED: NICO21TP TOP (22:06)
[2024-08-28] MEDS ORDERED: ONDA4ODT MM (22:29)
== END 2024-08-27 23:14 | disposition left against medical advice (07) ==
LOC: ER 16:46
PROVIDERS: Student in an Organized Health Care Education/Training Program
DX: Z53.21 Procedure and treatment not carried out due to patient leaving prior to being seen by health care provider (principal); R42 Dizziness and giddiness; R10.9 Unspecified abdominal pain
CPT/HCPCS: 80053; 83690; 84484; 85025; 93005; 93010

== ENCOUNTER 2024-08-28 16:40 | Emergency (ER) | payer MEDICARE, OTHER ==
[~2024-08-28] VITALS: Ht 160 cm; Wt 63.5 kg
[2024-08-28 17:22] LABS: BASOPHILS ABSOLUTE AUTO 0.04 K/mm3 (0.00-0.23); BASOPHILS PERCENT AUTO 1 % (0-2); EOSINOPHILS ABSOLUTE AUTO 0.05 K/mm3 (0.00-0.68); EOSINOPHILS PERCENT AUTO 1 % (0-6); Hematocrit 39.5 % (33.0-51.0); Hemoglobin 13.3 g/dL (11.5-16.0); IMMATURE GRAN ABSOLUTE AUTO 0.02 K/mm3 (0.00-0.10); IMMATURE GRAN PERCENT AUTO 0 % (0-1); LYMPHOCYTES ABSOLUTE AUTO 1.27 K/mm3 (0.84-5.20); LYMPHOCYTES PERCENT AUTO 24 % (21-46); MONOCYTES ABSOLUTE AUTO 0.44 K/mm3 (0.16-1.47); MONOCYTES PERCENT AUTO 8 % (4-13); Mean Corpuscular HGB 32.9 pg (26.0-34.0); Mean Corpuscular HGB Conc 33.7 g/dL (31.5-36.5); Mean Corpuscular Volume 98 fL (80-100); NEUTROPHILS ABSOLUTE AUTO 3.41 K/mm3 (1.96-9.15); NEUTROPHILS PERCENT AUTO 65 % (41-73); Platelet Count 252 K/mm3 (150-400); RDW Coefficient Variation 14.6 % (11.7-14.2); RDW Standard Deviation 52.9 fL (35.1-46.3); Red Blood Cell Count 4.04 M/mm3 (3.80-5.20); White Blood Cell Count 5.23 K/mm3 (4.00-11.30)
[2024-08-28 17:58] LABS: Albumin, Blood 3.8 g/dL (3.4-5.0); Albumin/Globulin Ratio 1.1 (0.8-1.8); Bilirubin, Total 0.4 mg/dL (0.1-1.0); Bun/Creatinine Ratio 18.1 (12.0-20.0); Calcium, Blood 9.1 mg/dL (8.5-10.1); Creatinine, Blood 0.66 mg/dL (0.40-1.00); Globulin, Blood 3.6 g/dL (2.2-4.0); Potassium, Blood 3.6 mmol/L (3.5-5.5); Total Protein, Blood 7.4 g/dL (6.4-8.2)
[2024-08-28 19:49] VITALS: BP 111/77
[2024-08-28] MEDS ORDERED: HYDROmorphone HCl/Pf 1MG SYR IV ONE (20:10)
[2024-08-28] MEDS ORDERED: NS 1,000 ML IV SCH (20:10)
[2024-08-28] MEDS ORDERED: Ondansetron HCl 2 MG / ML 2ML Vial IV ONE (20:15)
[2024-08-28] MEDS ORDERED: DULOXETINE HCL60 M1 PO (22:04)
[2024-08-28] MEDS ORDERED: SYNTHROID25 M12 PO (22:04)
[2024-08-28] MEDS ORDERED: Methocarbamol500 MG PO (22:05)
[2024-08-28] MEDS ORDERED: ALBU90OI INH (22:05)
[2024-08-28] MEDS ORDERED: CYMBALTA30 M2 PO (22:05)
[2024-08-28] MEDS ORDERED: NICO21TP TOP (22:06)
[2024-08-28] MEDS ORDERED: ONDA4ODT MM (22:29)
== END 2024-08-28 22:40 | disposition home or self-care (01) ==
LOC: ER 16:40
PROVIDERS: Student in an Organized Health Care Education/Training Program
DX: K52.9 Noninfective gastroenteritis and colitis, unspecified (principal); E03.9 Hypothyroidism, unspecified; F17.210 Nicotine dependence, cigarettes, uncomplicated; Z79.899 Other long term (current) drug therapy; Z88.0 Allergy status to penicillin; Z88.5 Allergy status to narcotic agent; Z88.2 Allergy status to sulfonamides; Z88.8 Allergy status to other drugs, medicaments and biological substances
CPT/HCPCS: 74177; 80053; 83690; 85025; 96374-59; 96375; 99284-25; J1171; J2405; J7030; Q9967

== ENCOUNTER → 2024-11-05 | Outpatient (CLI) | payer MEDICARE, OTHER ==
[~2024-11-05] MED LIST changes: +ALBU90OI INH; +CYMBALTA30 M2 PO; +DIAZEPAM2 M2 PO; +DULOXETINE HCL60 M1 PO; +LEVOTHYROXINE25 MC9 PO; +LEVSOD100 PO; +METR500 PO; +MULTI-VITAMIN1 EAC2 PO; +Methocarbamol500 MG PO; +NEOM500 PO; +NICO21TP TOP; +ONDA4ODT MM
== END | disposition home or self-care (01) ==
LOC: LAB SHORT 15:27 → LAB 15:27
PROVIDERS: Obstetrics & Gynecology
DX: Z01.419 Encounter for gynecological examination (general) (routine) without abnormal findings (principal)
CPT/HCPCS: 87624; G0123

== ENCOUNTER 2024-11-20 10:52 | Inpatient (IN) | payer MEDICARE, OTHER ==
[2024-11-20] VITALS (15 sets, daily range): BP systolic 105–141; BP diastolic 70–90
[~2024-11-20] VITALS: Ht 157.5 cm; Wt 37.2 kg
[~2024-11-20 10:52] MED LIST changes: +CYMBALTA60 M1 PO; +DIAZ2 PO; +ELDERBERRY350 MG PO; -LEVOTHYROXINE25 MC9 PO; +LEVSOD25 PO
[2024-11-20] MEDS ORDERED: CeFAZolin Sodium 2,000 MG in NS 100 ML IV SCH (11:15)
--- NOTE | 2024-11-20 11:33 | NUR ---
Ambulatory in Day Surgery History, Chart, Medications and Allergies reviewed before start of procedure. Pre-Op teaching done. Pt verbalizes understanding.
[2024-11-20] MEDS ORDERED: Bupivacaine 0.5% HCl 5 MG/ML 30MLVIAL ONE (12:12)
[2024-11-20] MEDS ORDERED: Midazolam HCl 1MG / ML 2ML Vial ONE (12:58)
[2024-11-20] MEDS ORDERED: Midazolam HCl 1MG / ML 2ML Vial IV ONE (13:05)
[2024-11-20] MEDS ORDERED: FentaNYL Citrate 50 MCG/ML 2 ML Injection ONE (13:07)
[2024-11-20] MEDS ORDERED: CeFAZolin Sodium 1000 mg Vial IV ONE (13:23)
[2024-11-20] MEDS ORDERED: Albuterol 2.5 MG/3 ML VIAL INH PRN (13:35)
[2024-11-20] MEDS ORDERED: Ondansetron HCl 2 MG / ML 2ML Vial IV PRN ×2 (13:40→14:40)
[2024-11-20] MEDS ORDERED: Midazolam HCl 1MG / ML 2ML Vial IV PRN (13:40)
[2024-11-20] MEDS ORDERED: HYDROmorphone HCl/Pf 1MG SYR IV PRN ×2 (13:40→14:40)
[2024-11-20] MEDS ORDERED: FentaNYL Citrate 50 MCG/ML 2 ML Injection IV PRN ×2 (13:45→13:50)
[2024-11-20] MEDS ORDERED: Sugammadex Sodium 200 MG/2ML SDV (100 MG/ML) ONE (13:53)
[2024-11-20] MEDS ORDERED: Ondansetron HCl 2 MG / ML 2ML Vial ONE ×2 (13:56→14:46)
[2024-11-20] MEDS ORDERED: Dexamethasone Sod Phos 10 MG/ML 1ML VIAL ONE (13:56)
[2024-11-20] MEDS ORDERED: HYDROmorphone HCl/Pf 1MG SYR ONE ×2 (14:08→14:45)
[2024-11-20] MEDS ORDERED: Metoclopramide HCl 5MG / ML 2ML Vial ONE (14:53)
[2024-11-20] MEDS ORDERED: Metoclopramide HCl 5MG / ML 2ML Vial IV ONE (14:55)
--- NOTE | 2024-11-20 16:22 | NUR ---
POST-OP PATIENT TO ROOM 231 MEPILEX COVERING THE OLD OSTOMY SITE WITH PINPOINT DRNG. PATIENT IS AMBULATING WITH SBA TO BATHROOM. IV IS SL. PATIENT TOLERATING PO INTAKE OF CL. VSS, CALL LIGHT IN REACH. FAMILY IN ROOM VISITING.
--- NOTE | 2024-11-20 17:41 | NUR ---
SHIFT SUMMARY PATIENT TOLERATES CL DIET, DENIES NAUSEA. UP AND VOIDING IN BATHROOM. IV IS SL. DENIES NEED FOR PAIN MEDICATION. PATIENT IS AOX4, SBA TO IND IN ROOM. VSS. CALLS APROPRIATELY.
--- NOTE | 2024-11-20 22:19 | NUR ---
ASSUMING CARE OF PT AT THIS TIME; REPORT RECEIVED FROM LEANNE ALCANTARA
[2024-11-21 04:54] VITALS: BP 117/67
[2024-11-21 05:03] LABS: Hematocrit 42.8 % (33.0-51.0); Hemoglobin 13.6 g/dL (11.5-16.0); Mean Corpuscular HGB Conc 31.8 g/dL (31.5-36.5); NRBC ABSOLUTE 0.00 K/mm3 (0.00-0.02); NRBC Auto 0.0 /100 WBC (0.0-0.2); Platelet Count 176 K/mm3 (150-400); RDW Coefficient Variation 14.4 % (11.7-14.2); RDW Standard Deviation 55.3 fL (35.1-46.3)
[2024-11-21 05:14] LABS: Mean Corpuscular Volume 103 fL (80-100)
[2024-11-21 05:23] LABS: Anion Gap 8.0 mmol/L (3-11); Blood Urea Nitrogen 11.0 mg/dL (8-24); CO2, Blood 17.0 mmol/L (21-32); Calcium, Blood 8.3 mg/dL (8.5-10.1); Chloride, Blood 110.0 mmol/L (98-108); Creatinine, Blood 0.53 mg/dL (0.40-1.00); Glucose, Blood 111.0 mg/dL (70-99); Potassium, Blood 4.4 mmol/L (3.5-5.5); Sodium, Blood 131.0 mmol/L (136-145)
--- NOTE | 2024-11-21 05:34 | NUR ---
SHIFT SUMMARY NO ACUTE EVENTS OVERNIGHT. PT AMBULATING IN HALLS, PT PASSING FLATUS. PT TOLERATING CLEAR LIQUID DIET. PT INDEPENDENT IN ROOM. ABDOMINAL DRESSING CDI.
[2024-11-21 07:31] VITALS: BP 125/86
[2024-11-21 14:37] VITALS: BP 131/87
--- NOTE | 2024-11-21 17:40 | NUR ---
Pt eating meal tray. will continue to monitor. Pt did not tolerate tomato soup for lunch. will continue to monitor.
[2024-11-21 19:15] VITALS: BP 103/69
--- NOTE | 2024-11-22 04:43 | NUR ---
NOC SUMMARY- PT PAIN MANAGED WELL. PT HAD SOME GI UPSET THAT RESOLVED ON OWN. PT TOLERATING PO THIS SHIFT. PT HAS BEEN ABLE TO TAKE PO PAIN MED WITH RELIEF. PT AMBULATORY AND VOIDING. PT PASSING GAS. CALL LIGHT IN REACH.
[2024-11-22 05:27] VITALS: BP 113/68
[2024-11-22 07:29] VITALS: BP 105/64
[2024-11-22] MEDS ORDERED: Enoxaparin 30 MG/0.3 ML SYR SC SCH (09:00)
[2024-11-22 15:14] VITALS: BP 111/71
[2024-11-22 19:47] VITALS: BP 114/79
--- NOTE | 2024-11-23 04:11 | NUR ---
NOC SUMMARY- PT PAIN MANAGED WELL. PT TOLERATING PO PAIN MEDS WELL. PT HAS BEEN RESTING QUIETLY IN NO DISTRESS. CALL LIGHT IN REACH.
[2024-11-23 05:03] VITALS: BP 104/65
[2024-11-23 07:05] VITALS: BP 97/61
[2024-11-23 15:49] VITALS: BP 109/70
--- NOTE | 2024-11-23 15:55 | NUR ---
DISCHARGED DR COBB IN TO SEE PT THIS AFTERNOON, GAVE ORDERS TO DC. REVIEWED DC ORDERS W/PT; VERBALIZED UNDERSTANDING. DC'D IV, CATHETER INTACT. PT LEFT UNIT IN WC W/POSSESSIONS AND DC PAPERWORK IN HAND TO MEET RIDE OUTSIDE.
== END 2024-11-23 15:50 | disposition home or self-care (01) | DRG 331 ==
LOC: SURS 10:52 → MEDS 10:52 → SURS 15:06
PROVIDERS: ADMIT Surgery
PROC: 3E03329 Introduction of Other Anti-infective into Peripheral Vein, Percutaneous Approach (ICD-10-PCS; 2024-11-20)
PROC: 0DQB0ZZ Repair Ileum, Open Approach (ICD-10-PCS; principal; 2024-11-20 13:00)
DX: Z43.3 Encounter for attention to colostomy (principal); F41.9 Anxiety disorder, unspecified; M19.90 Unspecified osteoarthritis, unspecified site; E03.9 Hypothyroidism, unspecified; F17.210 Nicotine dependence, cigarettes, uncomplicated; Z85.048 Personal history of other malignant neoplasm of rectum, rectosigmoid junction, and anus; Z98.51 Tubal ligation status; Z79.899 Other long term (current) drug therapy; Z79.891 Long term (current) use of opiate analgesic; Z98.890 Other specified postprocedural states; Z79.890 Hormone replacement therapy; Z88.5 Allergy status to narcotic agent; Z88.2 Allergy status to sulfonamides; Z88.7 Allergy status to serum and vaccine; Z88.0 Allergy status to penicillin; N28.1 Cyst of kidney, acquired; Z93.3 Colostomy status
CPT/HCPCS: 36415; 80048; 85027; 94760; A9270; J0690; J1100; J1171; J1650; J2250; J2405; J2704; J2765; J3010; J7120

== ENCOUNTER 2025-03-27 10:52 | Emergency (ER) | payer MEDICARE, OTHER ==
[~2025-03-27] VITALS: Ht 157.5 cm; Wt 39.0 kg
[2025-03-27 11:09] VITALS: BP 121/90
[2025-03-27] MEDS ORDERED: Ketorolac Tromethamine 15mg Vial IM ONE (11:10)
== END 2025-03-27 12:16 | disposition home or self-care (01) ==
LOC: ER 10:52
DX: M25.531 Pain in right wrist (principal); Z88.0 Allergy status to penicillin; Z88.7 Allergy status to serum and vaccine; Z88.2 Allergy status to sulfonamides; Z79.899 Other long term (current) drug therapy; F17.210 Nicotine dependence, cigarettes, uncomplicated; W18.30XA Fall on same level, unspecified, initial encounter
CPT/HCPCS: 73130; 96372; 99283-25; J1885